=== PATIENT | male | born 2000 | race Caucasian/White ===

== ENCOUNTER 2024-02-19 16:09 | Emergency (ER) | payer OTHER, SELFPAY ==
[2024-02-19 16:21] VITALS: BP 127/73; PULSE 77; RESP 18; TEMP 36.6; O2SAT 97; BMI 25.0
--- NOTE | 2024-02-19 16:39 | ED_ITS ---
HPI - Skin/Abscess/Foreign Bdy <Zack Goodman PA-C - Last Filed: 02/19/24 18:07> General Chief complaint: Skin/Abscess/Foreign Body Stated complaint: sent by SHAISTA, for a cyst Time Seen by Provider: 02/19/24 16:39 History of Present Illness HPI narrative: This is a 23-year-old male presents emergency department due to possible pilonidal cyst that has been developing over the last couple of weeks. He states that he has had these in the past occasionally needing surgical removal. He denies any fevers, nausea, vomiting, chills co hurt any other concerning signs in her symptoms. States it hurts to sit down on illness seat and he was discharged from [id number] find a comfortable position. Related Data Allergies Allergy/AdvReac Type Severity Reaction Status Date / Time No Known Drug Allergies Allergy Verified 02/19/24 16:26 Review of Systems <Zack Goodman PA-C - Last Filed: 02/19/24 18:07> Review of Systems Narrative: GENERAL: Denies chills, fatigue, malaise, fever, sweats. HEENT: Denies sinus pain, ear pain, sore throat, difficulty swallowing, dizziness. RESPIRATORY: Denies dyspnea, cough, wheezing, hemoptysis, sputum. CARDIOVASCULAR: Denies chest pain, palpitations, orthopnea, edema, GASTROINTESTINAL: Denies nausea, vomiting, abdominal pain, diarrhea, constipation, melena. : Denies dysuria, frequency, incontinence, hematuria, urinary retention. MUSCULOSKELETAL: Reports buttock pain denies weakness, joint pain, or bony pain SKIN: Denies rash, skin lesions, or other NEUROLOGIC: Denies weakness, headache, numbness, change in speech, confusion, seizures, incoordination. PSYCHIATRIC: No concerning psychosocial issues. 12 point review of systems is negative except for those stated above Patient History <CRISTO Robin Last Filed: 02/19/24 18:07> Social History Smoking Status: Current every day smoker Smoking Status: Current every day smoker tobacco type: vaping alcohol intake frequency: a few times a week Substance Use Type: does not use Exam <CRISTO Robin Last Filed: 02/19/24 18:07> Narrative Exam Narrative: GENERAL: Well-developed patient, in mild distress. HEAD: Atraumatic. Normocephalic. EYES: Pupils equal round and reactive. Extraocular motions intact. No scleral icterus. No injection or drainage. ENT: Nose without bleeding, purulent drainage. Throat without erythema, tonsillar hypertrophy or exudate. Airway patent. NECK: Trachea midline. Non tender EXTREMITIES: No edema or joint tenderness. NEURO: AOx3. SKIN: No evidence of a pilonidal cyst or fluctuance or erythema or purulent drainage. With palpation at the distal tail bone area there was significant tenderness. Initial Vital Signs Initial Vital Signs: Vital Signs Temperature 97.9 F 02/19/24 16:21 Pulse Rate 77 02/19/24 16:21 Respiratory Rate 18 02/19/24 16:21 Blood Pressure 127/73 02/19/24 16:21 Pulse Oximetry 97 02/19/24 16:21 Oxygen Delivery Method Room Air 02/19/24 16:21 <Shima Multani DO - Last Filed: 02/29/24 07:31> Initial Vital Signs Initial Vital Signs: Vital Signs Temperature 97.9 F 02/19/24 16:21 Pulse Rate 77 02/19/24 16:21 Respiratory Rate 18 02/19/24 16:21 Blood Pressure 127/73 02/19/24 16:21 Pulse Oximetry 97 02/19/24 16:21 Oxygen Delivery Method Room Air 02/19/24 16:21 Course <Zack Goodman PA-C - Last Filed: 02/19/24 18:07> Orders Ordered: ED Orders 02/19/24 16:59 CT abdomen pelvis w con Stat CBC Auto Diff [Complete Blood Count AUTO DIFF] Stat CMP [Comprehensive Metabolic Panel] Stat Vital Signs Vital signs: Vital Signs - 8 hr 02/19/24 16:21 Temperature 97.9 F Pulse Rate 77 Respiratory Rate 18 Blood Pressure 127/73 Pulse Oximetry 97 Oxygen Delivery Method Room Air <DO Katarzyna Juárez Last Filed: 02/29/24 07:31> Orders Ordered: ED Orders 02/19/24 16:59 CT abdomen pelvis w con Stat CBC Auto Diff [Complete Blood Count AUTO DIFF] Stat CMP [Comprehensive Metabolic Panel] Stat Vital Signs Vital signs: Vital Signs - 8 hr 02/19/24 16:21 Temperature 97.9 F Pulse Rate 77 Respiratory Rate 18 Blood Pressure 127/73 Pulse Oximetry 97 Oxygen Delivery Method Room Air MDM - Skin/Abscess/Foreign Bdy <Zack Goodman PA-C - Last Filed: 02/19/24 18:07> Lab Data 02/19/24 17:09 02/19/24 17:09 Labs: Lab Results 02/19/24 Range/Units 17:09 WBC 5.4 (4.5-11.0) X10^3/uL RBC 4.61 (4.5-5.9) X10^6/uL Hgb 14.6 (13.5-17.5) g/dL Hct 42.4 (41-53) % MCV 92.0 (80-100) fL MCH 31.7 (26-34) PG MCHC 34.4 (30-36) % RDW 13.4 (11.6-14.8) % Plt Count 229 (150-400) X10^3/uL Neut % (Auto) 52.8 (50-75) % Lymph % (Auto) 35.2 (25-40) % [place] % (Auto) 9.3 (3-14) % Eos % (Auto) 1.6 L (2-4) % Baso % (Auto) 1.1 (0-2) % Neut # (Auto) 2900 (8406-8864) /uL Lymph # (Auto) 1900 (3762-4113) /uL [place] # (Auto) 500 (0-900) /uL Eos # (Auto) 100 (0-450) /uL Baso # (Auto) 100 (0-100) /uL Sodium 141 (137-145) mmol/L Potassium 4.3 (3.4-5.1) mmol/L Chloride 110 H (98-107) mmol/L Carbon Dioxide 26 (22-32) mmol/L BUN 14 (9-20) mg/dL Creatinine 1.11 (0.66-1.25) mg/dL Estimated GFR > 60 (>60) mL/min BUN/Creatinine Ratio 12.6 (6-22) Glucose 95 (70-100) mg/dL Calcium 8.5 (8.4-10.2) mg/dL Total Bilirubin 0.5 (0.2-1.3) mg/dL AST 39 (17-59) IU/L ALT 48 (<50) IU/L Alkaline Phosphatase 61 (38-126) U/L Total Protein 7.6 (6.3-8.2) g/dL Albumin 4.4 (3.5-5.0) g/dL Globulin 3.2 (1.7-4.1) g/dL Albumin/Globulin Ratio 1.4 (1.0-2.8) Imaging Data Extremity x-ray #1: Radiologist's Impression: [address] [address] [address] Scan Report Signed Patient: Adonay Vernon MR#: [id number] : 2000 Acct:[id number] Age/Sex: 23 / M Date of Service: 02/19/24 Loc: ED Accession Number: [id number] Procedure: CT abdomen pelvis w con Ordering Provider: Zack Goodman P.A-C PROCEDURE: CT ABDOMEN PELVIS W CON INDICATIONS: possible pilonidal cyst TECHNIQUE: After the administration of intravenous contrast, axial sections acquired from the lung bases to the pubic symphysis. Coronal and sagittal reformats were performed. For radiation dose reduction, the following was used: automated exposure control, adjustment of mA and/or kV according to patient size. COMPARISON: None. FINDINGS: Image quality: Diagnostic Lower chest: Unremarkable lung bases. Mildly patulous distal esophagus. Liver: No solid mass Gallbladder and biliary system: Unremarkable, nondilated Pancreas: No ductal dilation Spleen: No discrete lesion or splenomegaly Adrenals: No discrete nodules Kidneys: No solid mass or hydronephrosis Vessels and lymph nodes: The main portal vein is patent. No abdominal aortic aneurysm or pathologic nodes by size criteria. Bowel and peritoneum: No evidence of small bowel obstruction. No pathologic ascites or drainable abscess. Overall fecal loading is moderate. The appendix appears nondilated Body wall: Unremarkable Pelvis: No discrete fluid collection in the pelvic wall. No discrete abnormality in the gluteal regions. No perianal abscess is identified. Bones: Unremarkable. No acute finding. IMPRESSION: No acute finding in the abdomen/pelvis. No discrete perianal or gluteal region abscess/fluid collection. If there is further clinical concern, consider focused MRI with a BB marker marking the site of symptoms. Other findings above. Dictated by: Panda Wiley M.D. on 02/19/2024 at 17:47 Approved by: Panda Wiley M.D. on 02/19/2024 at 17:51 [facility] Narrative Medical decision making narrative: ED course: This is a 23-year-old male presents to the emergency department due to complaints of a possible pilonidal cyst as he was a history of these in the past. He stating he was having some pain and discomfort in his similar area it was concerned he was developing a never another abscess or cyst. On exam there was nothing apparent and no significant erythema or fluctuance. CT was ordered for further investigation which was unremarkable and showed no evidence of any kind of developing cyst. Patient was follow up with the primary care provider for further investigation if symptoms continue. Lab work unremarkable as well. CC: Tailbone pain Complicating co-morbidities: None Data collected from: Previous notes Medical records reviewed: Patient was not been to this department in the past Differential considered, but not limited to: Pilonidal cyst, contusion, soft tissue injury Exam documented above, pertinent findings include: No obvious areas of fluctuance or erythema to the anal or gluteal region Lab Test results independently reviewed as above. Pertinent findings: CBC and a CMP unremarkable Imaging studies independently reviewed: CT unremarkable Scores Used: None MIPS Elements: None Consultations: None Treatments: None Re-evaluations: None Discussion: Discussed plan with the patient was comfortable with the plan Diagnosis: Tailbone pain Disposition: see below, along with detailed discharge instructions that have been reviewed with patient as well as indications for ED re-evaluation and additional outpatient follow up <Shima Multani, - Last Filed: 02/29/24 07:31> Lab Data Labs: Lab Results 02/19/24 Range/Units 17:09 WBC 5.4 (4.5-11.0) X10^3/uL RBC 4.61 (4.5-5.9) X10^6/uL Hgb 14.6 (13.5-17.5) g/dL Hct 42.4 (41-53) % MCV 92.0 (80-100) fL MCH 31.7 (26-34) PG MCHC 34.4 (30-36) % RDW 13.4 (11.6-14.8) % Plt Count 229 (150-400) X10^3/uL Neut % (Auto) 52.8 (50-75) % Lymph % (Auto) 35.2 (25-40) % [place] % (Auto) 9.3 (3-14) % Eos % (Auto) 1.6 L (2-4) % Baso % (Auto) 1.1 (0-2) % Neut # (Auto) 2900 (2648-5595) /uL Lymph # (Auto) 1900 (1735-8602) /uL [place] # (Auto) 500 (0-900) /uL Eos # (Auto) 100 (0-450) /uL Baso # (Auto) 100 (0-100) /uL Sodium 141 (137-145) mmol/L Potassium 4.3 (3.4-5.1) mmol/L Chloride 110 H (98-107) mmol/L Carbon Dioxide 26 (22-32) mmol/L BUN 14 (9-20) mg/dL Creatinine 1.11 (0.66-1.25) mg/dL Estimated GFR > 60 (>60) mL/min BUN/Creatinine Ratio 12.6 (6-22) Glucose 95 (70-100) mg/dL Calcium 8.5 (8.4-10.2) mg/dL Total Bilirubin 0.5 (0.2-1.3) mg/dL AST 39 (17-59) IU/L ALT 48 (<50) IU/L Alkaline Phosphatase 61 (38-126) U/L Total Protein 7.6 (6.3-8.2) g/dL Albumin 4.4 (3.5-5.0) g/dL Globulin 3.2 (1.7-4.1) g/dL Albumin/Globulin Ratio 1.4 (1.0-2.8) Discharge Plan Departure Patient Disposition: Home Clinical Impression: Pain, coccyx Activity Restrictions/Additional Instructions: Thank you for coming to the [facility] Emergency Department today. As we discussed your lab work today was reassuring and showed no signs of infection. The CT showed no evidence of any kind of bilateral cyst or abscess. I recommend he follow up with the primary care provider for further investigation of the pain continues. Please return to the emergency department if you develop any fevers, nausea, vomiting, or any other concerning signs or symptoms. I hope you feel better soon. Please follow up with your primary care provider within a week if your symptoms continue. If you do not have a primary care provider please contact the [facility] Resource line at [phone]. They will ask some questions about your medical history and help you get set up with a provider in the community. Referrals: Provider,Dona NOONAN [Primary Care Provider] - Stand Alone Forms: Patient Portal/API ED Sign-out <Shima Multani DO - Last Filed: 02/29/24 07:31> Cosign ED Attending Ashley Attestation: I was immediately available in the department for consultation.
--- NOTE | 2024-02-19 16:59 | DI.CT.S_ITS ---
PROCEDURE: CT ABDOMEN PELVIS W CON INDICATIONS: possible pilonidal cyst TECHNIQUE: After the administration of intravenous contrast, axial sections acquired from the lung bases to the pubic symphysis. Coronal and sagittal reformats were performed. For radiation dose reduction, the following was used: automated exposure control, adjustment of mA and/or kV according to patient size. COMPARISON: None. FINDINGS: Image quality: Diagnostic Lower chest: Unremarkable lung bases. Mildly patulous distal esophagus. Liver: No solid mass Gallbladder and biliary system: Unremarkable, nondilated Pancreas: No ductal dilation Spleen: No discrete lesion or splenomegaly Adrenals: No discrete nodules Kidneys: No solid mass or hydronephrosis Vessels and lymph nodes: The main portal vein is patent. No abdominal aortic aneurysm or pathologic nodes by size criteria. Bowel and peritoneum: No evidence of small bowel obstruction. No pathologic ascites or drainable abscess. Overall fecal loading is moderate. The appendix appears nondilated Body wall: Unremarkable Pelvis: No discrete fluid collection in the pelvic wall. No discrete abnormality in the gluteal regions. No perianal abscess is identified. Bones: Unremarkable. No acute finding. IMPRESSION: No acute finding in the abdomen/pelvis. No discrete perianal or gluteal region abscess/fluid collection. If there is further clinical concern, consider focused MRI with a BB marker marking the site of symptoms. Other findings above. Dictated by: Panda Wiley M.D. on 02/19/2024 at 17:47 Approved by: Panda Wiley M.D. on 02/19/2024 at 17:51
[2024-02-19 17:17] LABS: Add Manual Diff / Slide Review NO; Basophils Absolute Auto 100 /uL (0-100); Basophils Percent Auto 1.1 % (0-2); Eosinophils Absolute Auto 100 /uL (0-450); Eosinophils Percent Auto 1.6 % (2-4); Hematocrit 42.4 % (41-53); Hemoglobin 14.6 g/dL (13.5-17.5); Lymphocytes Absolute Auto 1900 /uL (1100-4500); Lymphocytes Percent Auto 35.2 % (25-40); Mean Corpuscular HGB Conc 34.4 % (30-36); Mean Corpuscular Hemoglobin 31.7 PG (26-34); Monocytes Absolute Auto 500 /uL (0-900); Monocytes Percent Auto 9.3 % (3-14); Neutrophils Absolute Auto 2900 /uL (1500-7000); Neutrophils Percent Auto 52.8 % (50-75); Platelet Count 229 X10^3/uL (150-400); Red Blood Cell Count 4.61 X10^6/uL (4.5-5.9); Red Cell Distribution Width 13.4 % (11.6-14.8); White Blood Cell Count 5.4 X10^3/uL (4.5-11.0)
[2024-02-19 17:29] LABS: Alanine Aminotransferase 48 IU/L (<50); Albumin 4.4 g/dL (3.5-5.0); Albumin Globulin Ratio 1.4 (1.0-2.8); Alkaline Phosphatase 61 U/L (38-126); Aspartate Aminotransferase 39 IU/L (17-59); BUN Creatinine Ratio 12.6 (6-22); Bilirubin Total 0.5 mg/dL (0.2-1.3); Blood Urea Nitrogen 14 mg/dL (9-20); Calcium 8.5 mg/dL (8.4-10.2); Carbon Dioxide 26 mmol/L (22-32); Chloride 110 mmol/L (98-107); Estimated Glomerular Filt Rate > 60 mL/min (>60); Globulin 3.2 g/dL (1.7-4.1); Glucose 95 mg/dL (70-100); HEMOLYSIS 42 (0-50); Potassium 4.3 mmol/L (3.4-5.1); Sodium 141 mmol/L (137-145); Total Protein 7.6 g/dL (6.3-8.2)
[2024-02-19 18:19] VITALS: BP 124/72; PULSE 75; RESP 18; O2SAT 99
== END 2024-02-19 18:19 | disposition home or self-care (01) ==
PROVIDERS: Emergency Provider Physician Assistant Medical
DX: M53.3 Sacrococcygeal disorders, not elsewhere classified (principal)
CPT/HCPCS: 36415; 74177; 80053; 85025; 99283; 99284; Q9967

== ENCOUNTER 2024-05-06 09:38 | Day surgery (SDC) | payer OTHER, SELFPAY ==
[2024-05-04 07:40] VITALS: BMI 25.0
--- NOTE | 2024-05-05 15:40 | P.HP_ITS ---
History of Present Illness History of Present Illness Date Patient Seen: 05/06/24 Time Patient Seen: 10:42 Chief complaint: Marie procedure Narrative: 24-year-old man with chronic renal cyst disease here for Lumpkin procedure. No interval change in health. [facility] Medical History (Updated 03/23/24 @ 13:25 by Rivka Cyr) ASD (atrial septal defect) Pilonidal cyst Surgical History (Updated 03/23/24 @ 13:25 by Rivka Cyr) [place] teeth removed Hx of tonsillectomy History of open heart surgery Family History (System 03/23/24 @ 13:25 by Rivka yCr) Grandfather Stroke Grandmother Breast cancer Grandmother Breast cancer Grandfather Colon cancer Uncle Colon cancer Social History (System 03/23/24 @ 13:25 by Rivka Cyr) marital status: unmarried,single household members: none lives independently: Yes occupational status: employed Smoking Status: Current every day smoker alcohol intake: current substance use type: does not use Meds Home Medications and Allergies Home Medications Medication Instructions Recorded Confirmed Type No Known Home Medications 03/19/24 05/06/24 History Allergies Allergy/AdvReac Type Severity Reaction Status Date / Time No Known Drug Allergies Allergy Verified 05/06/24 10:11 Exam Narrative Exam Narrative: General adult man alert oriented no acute distress Chest nonlabored respiration Extremities warm well perfused Assessment & Plan Assessment and plan (1) Pilonidal cyst: Status: Acute Assessment & Plan narrative: 24-year-old man with chronic pilonidal cyst disease here for Lumpkin procedure. Overview of the operation was once again reviewed. Surgical risks including hemorrhage, infection, recurrence were discussed. Postoperative care reviewed. Questions have been answered. Following this he provides his consent to proceed. Time-Based Coding :: [TOTAL MINUTES] spent with patient and on the chart (including review of chart, obtaining history, exam, reviewing outside data, placing orders, documenting exam and treatment plan, and counseling patient) on [DATE].
[2024-05-06] VITALS (8 sets, daily range): BP systolic 91–136; BP diastolic 39–80; PULSE 49–70; RESP 9–17; TEMP 35.9–36.6; O2SAT 98–99; BMI 25.0
--- NOTE | 2024-05-06 | PATH_ITS ---
[facility] Accession Number: [id number] No. of containers..01 Tissue . 01 Material submitted: . skin - PILONIDAL CYST . 01 Diagnosis: PILONIDAL CYST, EXCISION: Dermal cystic defect surrounded by mixed inflammation, fibrosis, and multiple free hair shafts, consistent with the clinical concern for a pilonidal cyst/disease. [facility] 05/12/2024 1041 Local . 01 Comment: A PAS fungal stain is negative for fungal hyphae. Clinical correlation is suggested. . 01 Electronically signed: . Ebenezer Cronin MD, Dermatopathologist NPI- [id number] . 01 Gross description: . Received in formalin with two identifiers and pilonidal cyst, is an unoriented ellipse of skin 8.7 x 2.7 x 2.2 cm. The skin is sewell and wrinkled with no discrete lesions identified. The margin is inked blue, and sectioning reveals a cystic structure 3.2 x 0.4 x 0.4 cm filled with brown grumous material. A guest service representative section is submitted in cassette A1. ([id number]) /[facility] 05/08/2024 1101 Local . 01 Pathologist provided ICD-10: L05.91 . 01 CPT . 452201, 196313 Specimen Comment: A courtesy copy of this report has been sent to [phone] Performed at: [address] [place] [address], [place], [place] [id number] MD Valente Tripp MD Phone: [phone]
[2024-05-06] MEDS: LACTATED RINGERS 1,000 ML 21 ML IV (10:33)
[2024-05-06] MEDS: ACETAMINOPHEN 325 MG TABLET 975 MG PO (10:33)
[2024-05-06] MEDS: FAMOTIDINE 20 MG/2 ML VIAL IV (10:34)
[2024-05-06] MEDS: CEFAZOLIN 2 GM/100 ML PREMIX 100 ML IV (10:55)
[2024-05-06] MEDS: BUPIVACAINE 0.25% (PF) VIAL 30 ML INJ (11:08)
--- NOTE | 2024-05-06 11:14 | SUR.OPER ---
Prone on padded OR bed, head in foam head support, gel chest rolls, gel pad under knees, pillow under lower legs, toes free of pressure, arms secured on padded arm boards at <90 degrees abduction. Safety belt at thigh.
[2024-05-06] MEDS: BUPIVACAINE LIPOSOME 266 MG/20 ML VIAL INJ (11:28)
--- NOTE | 2024-05-06 15:12 | P.OP_ITS ---
Operative Date/Time/Diagnoses Date of procedure: 05/06/24 Time of procedure: 15:12 Pre-op diagnosis: Pilonidal cyst Post-op diagnosis: same Procedure & Clinicians Procedure: [place]/cleft lift procedure Same procedure as scheduled: Yes Indications: 24-year-old man with current pilonidal cyst disease here for elective resection Surgeon: Lb Tee Production Shift Supervisor: Catracho Levi Click Yes if Unassisted: Yes Anesthesia Type: General Operative Notes Findings: Chronic pilonidal cyst disease Specimen(s): other (Pilonidal cyst) Estimated Blood Loss (mL): 20 Procedure in detail: Patient was brought to the operating room. General anesthesia was induced he was intubated with an endotracheal tube. He was then placed into the prone position and appropriately padded. He was then prepped and draped in sterile fashion time-out was performed. He received 2 g of Ancef prior to of the operation. We outlined the area just outside of the cleft where the buttocks would naturally touch one another. We marked a skin island within this in order to encompass all of the pilonidal cyst disease. 30 mL of 0.25% Marcaine mixed with 20 ml of Exparel were used to infiltrate the skin. The medial aspect of the skin island was incised down to the level of the subcutaneous tissue. We raised a skin flap on the adjacent side. The tape was released and we could see how far the flap would advance beyond the midline to the opposite side. With this the island of skin/active disease was excised and passed off the field as specimen. A 2nd skin flap was raised on the opposite side in similar fashion. Hemostasis was achieved. The wound was then closed in 3 layers using interrupte d PDS suture. A 15 Armenian drain was placed deep within the wound cavity secured using nylon. Skin was closed using Monocryl followed by the application of Dermabond. He was placed supine and extubated. He tolerated the procedure well was transferred to recovery in stable condition. The sponge and instrument count was correct x2. Complications: none Post-operative Condition: stable Disposition: same day surgery
== END 2024-05-06 13:15 | disposition home or self-care (01) ==
PROVIDERS: PCP Nurse Practitioner Family; Referring Provider Surgery; Visit Provider Surgery
PROC: (CPT 11772; principal; 2024-05-06 11:15)
DX: L05.91 Pilonidal cyst without abscess (principal)
CPT/HCPCS: 11772; 82962; C9290; J0690; J1100; J2250; J2405; J2704; J3010; J3490